=== PATIENT | male | born 1985 | race Caucasian/White ===

== ENCOUNTER 2017-09-12 16:47 | Emergency (ER) | payer BC ==
[2017-09-12] MEDS ORDERED: Ofloxacin 0.3% Ophth Soln 5 ML Bottle EYEBOTH SCH (17:00)
--- NOTE | 2017-09-12 17:05 | EDM.PDOC ---
ED HPI GENERAL MEDICAL PROBLEM - General Stated Complaint: PINK EYES Time Seen by Provider: 09/12/17 16:47 Source of Information: Reports: Patient History Limitations: Reports: No Limitations - History of Present Illness INITIAL COMMENTS - FREE TEXT/NARRATIVE: 32 y.o.w.m came to the ed with rei "pink eyes" Pt was seen at another clinic last Wednesday. His symptoms did not improve. This is why he came to the ed. No other acute medical issues. BP 136/82 HR 77 RR 18 Puls ox 97 Temp 98.2 Onset Date: 09/08/17 Onset Time: 07:00 Duration: Day(s):, Getting Worse, Intermittent Location: Reports: Face Quality: Reports: Burning Severity: Mild Improves with: Reports: Rest Worsens with: Reports: Movement Context: Reports: Sick Contact Associated Symptoms: Reports: No Other Symptoms - Related Data Allergies Allergy/AdvReac Type Severity Reaction Status Date / Time amoxicillin [Amoxicillin] Allergy Hives Verified 06/24/15 19:13 Penicillins Allergy Hives Verified 06/24/15 19:13 Home Meds: Home Meds traMADol [Ultram] 50 mg PO Q6H PRN 07/20/13 [History] Gabapentin [Neurontin] 600 mg PO TID 10/28/13 [History] Codeine/guaiFENesin [guaiFENesin-Codeine Syrup] 5 - 10 ml PO Q4H PRN #120 ml 11/01 [Rx] Past Medical History Musculoskeletal History: Reports: Back Pain, Chronic - Past Surgical History HEENT Surgical History: Reports: Oral Surgery Musculoskeletal Surgical History: Reports: Other (See Below) ED ROS GENERAL - Review of Systems Review Of Systems: See Below Constitutional: Reports: No Symptoms HEENT: Reports: Eye Pain Respiratory: Reports: No Symptoms Cardiovascular: Reports: No Symptoms Endocrine: Reports: No Symptoms GI/Abdominal: Reports: No Symptoms : Reports: No Symptoms Musculoskeletal: Reports: No Symptoms Skin: Reports: No Symptoms Neurological: Reports: No Symptoms Psychiatric: Reports: No Symptoms Hematologic/Lymphatic: Reports: No Symptoms Immunologic: Reports: No Symptoms ED EXAM GENERAL W FULL EYE - Physical Exam Exam: See Below Exam Limited By: No Limitations General Appearance: Alert, WD/WN, Mild Distress Eye Exam: Bilateral Eye: Conjunctival Injection Eyelids: Bilateral: Normal Appearance Conjunctiva & Sclera: Bilateral: Injected Cornea Exam: Bilateral: Normal Appearance Extraocular Movements: Bilateral: Intact Pupillary Size: Bilateral: 3 mm Pupillary Reaction: Bilateral: Brisk Anterior Chamber: Bilateral: Normal Appearance Ears: Normal External Exam, Normal Canal Nose: Normal Inspection, Normal Mucosa Throat/Mouth: Normal Inspection, Normal Lips Head: Atraumatic, Normocephalic Neck: Normal Inspection Respiratory/Chest: No Respiratory Distress Cardiovascular: Normal Peripheral Pulses GI/Abdominal: Normal Bowel Sounds (Male) Exam: Deferred (Female) Exam: Deferred Rectal (Males) Exam: Deferred Rectal (Female) Exam: Deferred Back Exam: Normal Inspection, Full Range of Motion Extremities: Normal Inspection, Normal Range of Motion, Non-Tender, No Pedal Edema Neurological: Alert, Oriented, CN II-XII Intact, Normal Cognition, Normal Gait Psychiatric: Normal Affect, Normal Mood Skin Exam: Warm Lymphatic: No Adenopathy Course - Vital Signs Text/Narrative:: 32 y.o.w.m came to the ed with eri "pink eyes" Pt was seen at another clinic last Wednesday. His symptoms did not improve. This is why he came to the ed. No other acute medical issues. BP 136/82 HR 77 RR 18 Puls ox 97 Temp 98.2 PE: 32 y.o.w.m with rei conjunctivitis Impression: Bilat viral conjunctivitis Tx: Ofloxacine eye drops Reexam: Improved Plan: D/C with instructions - Orders/Labs/Meds Orders: Active Orders 24 hr Category Date Time Status Ofloxacin [Ocuflox 0.3% Ophth Soln] Med 09/12/17 17:00 Active 0.01 ml EYEBOTH QID Medication Orders Ofloxacin (Ocuflox 0.3% Ophth Soln) 0.01 ml EYEBOTH QID [facility] Meds: Medications Generic Name Dose Route Start Last Admin Trade Name Freq PRN Reason Stop Dose Admin Ofloxacin 0.01 ml 09/12/17 17:00 Ocuflox 0.3% Ophth Soln EYEBOTH QID [facility] Departure - Departure Time of Disposition: 17:27 Disposition: Home, Self-Care 01 Condition: Good Clinical Impression: [place] eye disease of both eyes - Discharge Information Instructions: Viral Conjunctivitis, Adult, How to Use Eye Drops and Eye Ointments Referrals: Jam Lee MD [Primary Care Provider] - Additional Instructions: Please apply ofloxacine eye drops in both eyes every 4 hours for 7 days, please f/u, come back if your symptoms get worse acutely. - My Orders Last 24 Hours: My Active Orders 09/12/17 17:00 Ofloxacin [Ocuflox 0.3% Ophth Soln] 0.01 ml EYEBOTH QID - Assessment/Plan Last 24 Hours: My Active Orders 09/12/17 17:00 Ofloxacin [Ocuflox 0.3% Ophth Soln] 0.01 ml EYEBOTH QID
[2017-09-12 18:54] VITALS: BP 136/82
== END 2017-09-12 17:37 | disposition home or self-care (01) ==
LOC: FB.ED 16:47
DX: B30.9 Viral conjunctivitis, unspecified (principal); Z88.1 Allergy status to other antibiotic agents; Z88.0 Allergy status to penicillin; Z79.899 Other long term (current) drug therapy
CPT/HCPCS: 99282; A9270